=== PATIENT | female | born 1990 | race Caucasian/White ===

== ENCOUNTER 2018-03-21 12:09 | Emergency (ER) | payer SELFPAY | END 2018-03-21 13:40 | disposition home or self-care (01) | LOC: MADERS 12:09 | DX: J45.909 Unspecified asthma, uncomplicated (principal); J06.9 Acute upper respiratory infection, unspecified; E11.9 Type 2 diabetes mellitus without complications; E03.9 Hypothyroidism, unspecified; Z79.899 Other long term (current) drug therapy; Z79.84 Long term (current) use of oral hypoglycemic drugs | CPT/HCPCS: 99283; J7620 ==

== ENCOUNTER 2020-02-20 17:49 | Emergency (ER) | payer SELFPAY ==
[2020-02-20] MEDS ORDERED: Morphine 4 MG/ML VIAL ONE (18:57)
[2020-02-20] MEDS ORDERED: Ibuprofen 800 MG TAB ONE (20:51)
[2020-02-20 21:47] LABS: Pregnancy Test - Urine (BHCG) Negative (Negative); Pregu Control Background? CLEAR/WHITE (CLR/WHITE); Pregu Control Bar Appear? YES (CONTROL BAR); Specific Gravity 1.015 (1.002-1.036)
[2020-02-20 22:13] LABS: Bilirubin Negative (Negative); Blood, Urine Large (Negative); Clarity Hazy (Clear); Glucose, Urine (Dipstick) Negative (Negative); Ketone, Urine Negative (Negative); Leukocyte Negative (Negative); Nitrite Negative (Negative); Protein, Urine (Dipstick) 30 mg/dL (Neg-Trace); RBC/HPF Greater than 50 HPF (0-3); Specific Gravity, Urine 1.015 (1.005-1.030); Urobilinogen 0.2 mg/dL (Less than 2); pH, Urine 5.5 (5.0-9.0)
[2020-02-20 22:14] LABS: Bacteria/HPF Rare-Few HPF (None Seen); Squamous Epithelial 0-3 HPF (0-3); WBC/HPF 0-3 HPF (0-3)
--- NOTE | 2020-02-23 07:23 | CT ---
ABDOMEN CT WITHOUT CONTRAST PELVIC CT WITHOUT CONTRAST 02/20/20 HISTORY: Lower abdominal and pelvic pain. COMPARISON: None. FINDINGS: ABDOMEN CT: Clear lung bases. Limited evaluation of the solid organs by the lack of IV contrast. Grossly no solid organ abnormality . No CT evidence of cholelithiasis or cholecystitis. No gastrohepatic, retrocrural or periportal lymp hadenopathy. No mesenteric mass, lymphadenopathy, free air or free fluid. The visualized heart and aorta have a normal appearance. Limited evaluation of the alimentary canal b y the lack of oral contrast. No evidence of bowel obstruction. Normal ileocecal junction. Normal guerita calderon appendix. Scattered fecal material in a nondistended, nondilated colon. Diverticulosis without ev idence of diverticulitis. Bilaterally, no hydronephrosis, nephrolithiasis or perinephric fat stranding. Bilateral ureters have a normal caliber. No hydroureter, periureteral fat stranding or ureterolithiasis. PELVIC CT: Uterus and right adnexa have a grossly normal appearance. There is mild stranding of the fat adjacent to the left ovary. Focal inflammation of the left ovary cannot be excluded. There is also inflammato ry change involving the left ovarian vein which may represent a component of thrombophlebitis. There is no free fluid, mass or lymphadenopathy in the pelvis. Mildly enlarged nonspecific bilateral inguinal lymph nodes are noted. No lytic or blastic lesions in the osseous structures. IMPRESSION: 1. No evidence of obstructive uropathy. 2. Normal caliber appendix. 3. Possible inflammatory changes involving the left ovary with possible thrombophlebitis involvi ng the left ovarian vein. Consider [employer] consultation. POS: PPP
== END 2020-02-20 21:00 | disposition home or self-care (01) ==
LOC: MADERS 17:49
DX: R10.32 Left lower quadrant pain (principal); M54.5 Low back pain; E78.5 Hyperlipidemia, unspecified; E78.00 Pure hypercholesterolemia, unspecified; E11.9 Type 2 diabetes mellitus without complications; E03.9 Hypothyroidism, unspecified; Z79.4 Long term (current) use of insulin; Z79.899 Other long term (current) drug therapy
CPT/HCPCS: 74176; 81003; 81015; 81025; 96372; J2270

== ENCOUNTER 2020-03-05 11:36 | Emergency (ER) | payer SELFPAY ==
[~2020-03-05 11:36] MED LIST: Iopamidol 370 76% 100 ML VIAL ONE
[2020-03-05 12:21] LABS: Bilirubin Negative (Negative); Blood, Urine Negative (Negative); Clarity Clear (Clear); Glucose, Urine (Dipstick) Negative (Negative); Ketone, Urine Negative (Negative); Leukocyte Negative (Negative); Nitrite Negative (Negative); Protein, Urine (Dipstick) Negative (Neg-Trace); Urobilinogen 0.2 mg/dL (Less than 2)
[2020-03-05] MEDS ORDERED: Ondansetron PF 4 MG/2 ML Vial ONE (12:34)
[2020-03-05] MEDS ORDERED: Ketorolac Tromethamine 30 MG/ML VIAL ONE (12:34)
[2020-03-05] MEDS ORDERED: Sodium Chloride 0.9% 1,000 ML ONE (12:34)
[2020-03-05 12:46] LABS: ALT (SGPT) 18 U/L (8-55); AST (SGOT) 17 U/L (5-34); Albumin 4.3 g/dL (3.5-5.0); Alkaline Phosphatase 116 U/L (40-110); Anion Gap 16 mmol/L (10-20); BUN (Urea Nitrogen) 10 mg/dL (7.0-18.7); Bilirubin, Total 0.4 mg/dL (0.2-1.2); Calc. Creatinine Clearance 0 mL/min (70-130); Calcium 9.4 mg/dL (7.8-10.44); Carbon Dioxide 24 mmol/L (22-29); Chloride 104 mmol/L (98-107); Estimated GFR-MDRD Greater than 90; Globulin 3.6 g/dL (2.4-3.5); Glucose 88 mg/dL (70-105); Potassium 4.2 mmol/L (3.5-5.1); Protein, Total 7.9 g/dL (6.0-8.3); Sodium 140 mmol/L (136-145)
[2020-03-05 12:51] LABS: #Basophils 0.2 thou/uL (0.0-0.2); #Lymphocytes 2.9 thou/uL (1.20-3.40); #Monocytes 0.6 thou/uL (0.11-0.59); #Neutrophils 11.8 thou/uL (1.40-6.50); %Eosinophils 0.3 % (0.0-10.0); %Lymphocytes 18.7 % (21.0-51.0); %Monocytes 4.1 % (0.0-10.0); %Neutrophils 75.9 % (42.0-75.0); Hemoglobin 14.1 g/dL (12.0-16.0); Mean Corpuscular HGB CONC 31.6 g/dL (32.0-36.0); Mean Corpuscular Hemoglobin 27.1 pg (27.0-31.0); Mean Corpuscular Volume 85.8 fL (78.0-98.0); Mean Platelet Volume 5.6 fL (7.4-10.4); Platelet Count 599 thou/uL (130-400); RBC Distribution Width 12.5 % (11.5-14.5); White Blood Cell (WBC) Count 15.6 thou/uL (4.8-10.8)
[2020-03-05 12:52] LABS: Pregnancy Test - Urine (BHCG) Negative (Negative); Pregu Control Background? CLEAR/WHITE (CLR/WHITE); Pregu Control Bar Appear? YES (CONTROL BAR)
--- NOTE | 2020-03-05 14:44 | CT ---
CT OF THE ABDOMEN AND PELVIS WITH IV CONTRAST INDICATION: Left-sided flank pain COMPARISON: Prior noncontrast CT of the abdomen and pelvis dated February 20, 2020 FINDINGS: ABDOMEN: Lung bases: Clear Liver: No focal lesion. Gallbladder: Normal appearing. Pancreas: Normal. Adrenal glands: Normal. Spleen: Spleen remains enlarged measuring 14.4 cm. Kidneys and ureters: Normal. No hydronephrosis. Vasculature: Normal. Lymph nodes:No lymphadenopathy. Free fluid in abdomen:No free fluid is evident. PELVIS: Small and large bowel: Normal Appendix:Normal Bladder: Normal. Rectal and perirectal soft tissues:Normal. Reproductive structures: Normal. Free fluid in pelvis: No free fluid is evident. Lymphadenopathy pelvis: No lymphadenopathy is evident. Osseous structures: No acute osseous abnormality. No destructive osteolytic or osteoblastic lesion i s identified. Soft tissues:Normal. IMPRESSION: 1. Stable mild splenomegaly. 2. No renal or ureteral calculus. No hydronephrosis.
[2020-03-05] MEDS ORDERED: cefTRIAXone\\ROCEPHIN 1 GM VIAL ONE (15:13)
== END 2020-03-05 15:32 | disposition home or self-care (01) ==
LOC: MADERS 11:36
DX: N39.0 Urinary tract infection, site not specified (principal); E78.5 Hyperlipidemia, unspecified; E11.9 Type 2 diabetes mellitus without complications; E03.9 Hypothyroidism, unspecified; Z79.4 Long term (current) use of insulin; Z79.899 Other long term (current) drug therapy
CPT/HCPCS: 74177; 80053; 81003; 81025; 85025; 96361; 96374; 96375; J0696; J1885; J2405; J7050; Q9967

== ENCOUNTER 2020-12-02 10:23 | Emergency (ER) | payer SELFPAY | END 2020-12-02 10:52 | disposition home or self-care (01) | LOC: MADERS 10:23 | DX: J30.9 Allergic rhinitis, unspecified (principal); E11.9 Type 2 diabetes mellitus without complications; E66.9 Obesity, unspecified; E78.5 Hyperlipidemia, unspecified; E78.00 Pure hypercholesterolemia, unspecified; E03.9 Hypothyroidism, unspecified; Z79.4 Long term (current) use of insulin; Z79.899 Other long term (current) drug therapy | CPT/HCPCS: 99283 ==

== ENCOUNTER 2021-06-07 08:18 | Emergency (ER) | payer BC, SELFPAY ==
[2021-06-07] MEDS ORDERED: Benzonatate 100 MG CAP ONE (09:10)
[2021-06-07] MEDS ORDERED: Azithromycin 250 MG TAB ONE (09:10)
== END 2021-06-07 09:27 | disposition home or self-care (01) ==
LOC: MADERS 08:18
DX: J18.9 Pneumonia, unspecified organism (principal); J02.9 Acute pharyngitis, unspecified; E11.9 Type 2 diabetes mellitus without complications; E03.9 Hypothyroidism, unspecified; E78.5 Hyperlipidemia, unspecified
CPT/HCPCS: 71046

== ENCOUNTER 2021-09-06 18:54 | Emergency (ER) | payer BC ==
[2021-09-06 19:51] LABS: #Basophils 0.3 thou/uL (0.0-0.2); #Eosinphils 0.1 thou/uL (0.0-0.7); #Lymphocytes 3.7 thou/uL (1.20-3.40); #Monocytes 0.7 thou/uL (0.11-0.59); #Neutrophils 10.9 thou/uL (1.40-6.50); %Basophils 1.8 % (0.0-1.0); %Eosinophils 0.9 % (0.0-10.0); %Lymphocytes 23.7 % (21.0-51.0); %Monocytes 4.4 % (0.0-10.0); %Neutrophils 69.2 % (42.0-75.0); Hemoglobin 13.4 g/dL (12.0-16.0); Mean Corpuscular HGB CONC 33.1 g/dL (32.0-36.0); Mean Corpuscular Hemoglobin 27.4 pg (27.0-31.0); Mean Platelet Volume 5.3 fL (7.4-10.4); Platelet Count 466 thou/uL (130-400); Red Blood Cell (RBC) Count 4.88 mill/uL (4.20-5.40); White Blood Cell (WBC) Count 15.8 thou/uL (4.8-10.8)
[2021-09-06 20:04] LABS: BHCG - Serum Negative (NEGATIVE); Pregs Control Background? CLEAR/WHITE (CLR/WHITE); Pregs Control Bar Appear? YES (CONTROL BAR)
[2021-09-06 20:10] LABS: ALT (SGPT) 18 U/L (8-55); AST (SGOT) 15 U/L (5-34); Albumin 4.2 g/dL (3.5-5.0); Alkaline Phosphatase 104 U/L (40-110); Anion Gap 17 mmol/L (10-20); BUN (Urea Nitrogen) 12 mg/dL (7.0-18.7); Bilirubin, Total 0.3 mg/dL (0.2-1.2); Calc. Creatinine Clearance 0 mL/min (70-130); Calcium 9.4 mg/dL (7.8-10.44); Carbon Dioxide 22 mmol/L (22-29); Chloride 105 mmol/L (98-107); Globulin 3.2 g/dL (2.4-3.5); Glucose 125 mg/dL (70-105); Magnesium 1.7 mg/dL (1.6-2.6); Potassium 4.1 mmol/L (3.5-5.1); Protein, Total 7.4 g/dL (6.0-8.3); Sodium 140 mmol/L (136-145)
[2021-09-06] MEDS ORDERED: Acetaminophen 500 MG TAB ONE (21:22)
[2021-09-06 22:49] LABS: Troponin I Less than 0.010 ng/mL (< 0.028)
== END 2021-09-06 23:06 | disposition home or self-care (01) ==
LOC: MADERS 18:54
DX: R07.9 Chest pain, unspecified (principal); K21.9 Gastro-esophageal reflux disease without esophagitis; R00.2 Palpitations; E11.9 Type 2 diabetes mellitus without complications; E03.9 Hypothyroidism, unspecified; E78.5 Hyperlipidemia, unspecified; E78.00 Pure hypercholesterolemia, unspecified; Z79.84 Long term (current) use of oral hypoglycemic drugs; Z79.899 Other long term (current) drug therapy
CPT/HCPCS: 36415; 71045; 80053; 83735; 84443; 84484; 84703; 85025; 93005; 94760

== ENCOUNTER 2022-01-20 20:49 | Emergency (ER) | payer BC ==
[2022-01-20 21:14] LABS: Bilirubin Negative (Negative); Blood, Urine Moderate (Negative); Clarity Cloudy (Clear); Glucose, Urine (Dipstick) Negative (Negative); Ketone, Urine Negative (Negative); Leukocyte Small (Negative); Nitrite Negative (Negative); Protein, Urine (Dipstick) Trace mg/dL (Neg-Trace); Specific Gravity, Urine 1.015 (1.005-1.030); Urobilinogen 0.2 mg/dL (Less than 2); pH, Urine 5.5 (5.0-9.0)
[2022-01-20 21:16] LABS: Bacteria/HPF 3+ HPF (None Seen); RBC/HPF 21-50 HPF (0-3)
[2022-01-20 21:17] LABS: Pregnancy Test - Urine (BHCG) Negative (Negative); Pregu Control Background? CLEAR/WHITE (CLR/WHITE); Pregu Control Bar Appear? YES (CONTROL BAR); Specific Gravity 1.015 (1.002-1.036)
[2022-01-20] MEDS ORDERED: Phenazopyridine HCl 97.5 MG TABLET ONE (21:39)
[2022-01-20] MEDS ORDERED: Cephalexin 500 MG CAP ONE (21:39)
== END 2022-01-20 22:06 | disposition home or self-care (01) ==
LOC: MADERS 20:49
DX: N30.01 Acute cystitis with hematuria (principal); N10 Acute pyelonephritis; E11.9 Type 2 diabetes mellitus without complications; E03.9 Hypothyroidism, unspecified; E78.5 Hyperlipidemia, unspecified; E78.00 Pure hypercholesterolemia, unspecified; Z79.84 Long term (current) use of oral hypoglycemic drugs; Z79.899 Other long term (current) drug therapy
CPT/HCPCS: 81003; 81015; 81025; 87086; 99284

== ENCOUNTER 2022-04-25 23:24 | Emergency (ER) | payer BC ==
[2022-04-25] MEDS ORDERED: Sodium Chloride 0.9% 1,000 ML ONE (23:52)
[2022-04-25] MEDS ORDERED: Ondansetron PF 4 MG/2 ML Vial ONE (23:52)
[2022-04-25] MEDS ORDERED: Morphine 4 MG/ML VIAL ONE (23:52)
[2022-04-25] MEDS ORDERED: HYDROcodone/Acetaminophen 5/325 mg Tablet ONE (23:55)
[2022-04-26 00:03] LABS: #Basophils 0.1 thou/uL (0.0-0.2); #Eosinphils 0.2 thou/uL (0.0-0.7); #Lymphocytes 2.8 thou/uL (1.20-3.40); #Monocytes 0.7 thou/uL (0.11-0.59); #Neutrophils 10.2 thou/uL (1.40-6.50); %Basophils 1.1 % (0.0-1.0); %Eosinophils 1.5 % (0.0-10.0); %Lymphocytes 20.1 % (21.0-51.0); %Monocytes 5.1 % (0.0-10.0); %Neutrophils 72.3 % (42.0-75.0); Hemoglobin 13.2 g/dL (12.0-16.0); Mean Corpuscular HGB CONC 33.2 g/dL (32.0-36.0); Mean Corpuscular Hemoglobin 28.1 pg (27.0-31.0); Mean Corpuscular Volume 84.8 fl (78.0-98.0); Mean Platelet Volume 5.7 fL (7.4-10.4); Platelet Count 517 thou/uL (130-400); RBC Distribution Width 12.4 % (11.5-14.5); Red Blood Cell (RBC) Count 4.69 mill/uL (4.20-5.40); White Blood Cell (WBC) Count 14.1 thou/uL (4.8-10.8)
[2022-04-26 00:22] LABS: ALT (SGPT) 8 U/L (8-55); AST (SGOT) 9 U/L (5-34); Alkaline Phosphatase 75 U/L (40-110); Anion Gap 11 mmol/L (10-20); BUN (Urea Nitrogen) 10 mg/dL (7.0-18.7); Bilirubin, Total 0.2 mg/dL (0.2-1.2); Calc. Creatinine Clearance 0 mL/min (70-130); Calcium 9.5 mg/dL (7.8-10.44); Carbon Dioxide 24 mmol/L (22-29); Chloride 106 mmol/L (98-107); Estimated GFR 115; Globulin 3.2 g/dL (2.4-3.5); Glucose 190 mg/dL (70-105); Potassium 3.8 mmol/L (3.5-5.1); Protein, Total 7.2 g/dL (6.0-8.3); Sodium 137 mmol/L (136-145)
[2022-04-26 00:33] LABS: Blood, Urine Large (Negative); Clarity Turbid (Clear); Glucose, Urine (Dipstick) 100 mg/dL (Negative)
[2022-04-26 00:41] LABS: Specific Gravity, Urine 1.038 (1.002-1.036); pH, Urine 5.5 (5.0-9.0)
[2022-04-26 00:42] LABS: Bilirubin Small (Negative); Ketone, Urine Negative (Negative); Leukocyte Negative (Negative); Nitrite Negative (Negative); Protein, Urine (Dipstick) 100 mg/dL (Neg-Trace); Urobilinogen 0.2 mg/dL (Less than 2)
[2022-04-26 00:51] LABS: RBC/HPF Greater than 50 HPF (0-3)
[2022-04-26] MEDS ORDERED: Ketorolac Tromethamine 30 MG/ML VIAL ONE (01:07)
== END 2022-04-26 01:25 | disposition home or self-care (01) ==
LOC: MADERS 23:24
DX: O20.0 Threatened abortion (principal); Z3A.01 Less than 8 weeks gestation of pregnancy
CPT/HCPCS: 80053; 81003; 81015; 84702; 85025; 86900; 86901; 96374; 96375; J1885; J2270; J2405; J7050

== ENCOUNTER 2022-11-17 19:11 | Emergency (ER) | payer BC ==
[2022-11-17] MEDS ORDERED: Amoxicillin/Potassium Clav 875 MG TAB ONE (20:13)
== END 2022-11-17 20:34 | disposition home or self-care (01) ==
LOC: MADERS 19:11
DX: K08.89 Other specified disorders of teeth and supporting structures (principal); E11.9 Type 2 diabetes mellitus without complications; E03.9 Hypothyroidism, unspecified; E78.00 Pure hypercholesterolemia, unspecified; Z79.899 Other long term (current) drug therapy
CPT/HCPCS: 99282

== ENCOUNTER 2023-06-27 17:53 | Emergency (ER) | payer BC, OTHER, SELFPAY | END 2023-06-27 19:15 | disposition home or self-care (01) | LOC: MADERS 17:53 | DX: J02.9 Acute pharyngitis, unspecified (principal); E11.9 Type 2 diabetes mellitus without complications; E03.9 Hypothyroidism, unspecified; Z79.890 Hormone replacement therapy | CPT/HCPCS: 87081; 87430; 87804; 99283 ==

== ENCOUNTER 2024-03-23 12:17 | Emergency (ER) | payer OTHER ==
[2024-03-23] MEDS ORDERED: Prochlorperazine 10 MG/2 ML VIAL ONE (13:21)
[2024-03-23] MEDS ORDERED: diphenhydrAMINE 50 MG/ML VIAL ONE (13:21)
[2024-03-23] MEDS ORDERED: Lactated Ringer's 1,000 ML ONE (13:22)
[2024-03-23] MEDS ORDERED: Ketorolac Tromethamine 30 MG (1 mL) VIAL ONE (13:22)
[2024-03-23 13:24] LABS: Pregnancy Test - Urine (BHCG) Negative (Negative); Pregu Control Background? CLEAR/WHITE (CLR/WHITE); Pregu Control Bar Appear? YES (CONTROL BAR); Specific Gravity 1.025 (1.002-1.036)
[2024-03-23 13:25] LABS: Bilirubin Negative (Negative); Blood, Urine Trace (Negative); Clarity Slightly Cloudy (Clear); Glucose, Urine (Dipstick) Negative (Negative); Ketone, Urine Trace mg/dL (Negative); Leukocyte Small (Negative); Nitrite Negative (Negative); Protein, Urine (Dipstick) Negative (Neg-Trace); Urobilinogen 0.2 mg/dL (Less than 2); pH, Urine 5.5 (5.0-9.0)
[2024-03-23 13:29] LABS: Specific Gravity, Urine 1.025 (1.002-1.036)
[2024-03-23 13:30] LABS: RBC/HPF 0-3 HPF (0-3)
[2024-03-23 13:31] LABS: Bacteria/HPF 3+ HPF (None Seen); CAUTI Indications for Culture Dysuria,urgency,freq; Squamous Epithelial 21-50 HPF (0-3)
[2024-03-23 13:32] LABS: Urine Culture Reflex Yes Yes
== END 2024-03-23 14:32 | disposition home or self-care (01) ==
LOC: MADERS 12:17
DX: R51.9 Headache, unspecified (principal); E11.9 Type 2 diabetes mellitus without complications; E03.9 Hypothyroidism, unspecified; E78.5 Hyperlipidemia, unspecified; E78.00 Pure hypercholesterolemia, unspecified; Z79.899 Other long term (current) drug therapy; Z79.84 Long term (current) use of oral hypoglycemic drugs
CPT/HCPCS: 36416; 81001; 81025; 87086; 96374; 96375; J0780; J1200; J1885; J7120